=== PATIENT | male | born 1950 | race Caucasian/White ===

== ENCOUNTER 2017-07-18 13:46 | Inpatient (IN) ==
--- NOTE | 2017-07-18 14:16 | CT Report ---
CT brain Indication: Right-sided weakness Comparison: None available Technique: Axial CT imaging of the brain is performed without contrast with 3 mm increments. Findings: No evidence of hemorrhage, mass mass effect midline shift or acute infarct seen. The brain parenchyma attenuation and differentiation appears within normal limits. The ventricles and cisterns are normal in caliber. No cranial or skull base abnormality is identified. Impression: No evidence of abnormality demonstrated. This CT exam was performed using one or more the following dose reduction techniques: Automated exposure control, adjustment of the MA and/or KV according to patient size, or use of iterative reconstruction technique. PROCEDURE INTERPRETED AT [facility] DEPARTMENT OF RADIOLOGY Final Report Signed by: Dr. Ritchie Pena
[2017-07-18] MEDS ORDERED: SODIUM CHLORIDE 0.9% 500 ML IV STA (14:51)
[2017-07-18 15:05] LABS: Basophils # 0.1 10*3/uL (0.0-0.2); Basophils % 0.6 % (0.0-0.8); Eosinophils # 0.1 10*3/uL (0.0-0.87); Eosinophils % 0.6 % (0.00-10.9); Hematocrit 43.9 VOL% (42.0-52.0); Hemoglobin 15.2 GM/DL (14.0-18.0); Lymphocytes # 2.3 10*3/uL (1.4-4.0); Lymphocytes % 23.5 % (21.2-54.2); Mean Corpuscular HGB Conc 34.6 GM/DL (32-36); Mean Corpuscular Hemoglobin 29 PG (27-34); Mean Corpuscular Volume 84.7 FL (87-102); Mean Platelet Volume 8.9 FL (9.6-12.0); Monocytes # 0.9 10*3/uL (0.11-0.8); Monocytes % 8.8 % (1.7-12.7); Neutrophils # 6.5 10*3/uL (1.4-7.4); Neutrophils % 65.5 % (38.7-73.9); Platelet Count 272 T/CUMM (130-400); Red Blood Count 5.18 MC/CUMM (3.8-5.5); Red Cell Distribution Width 13.3 % (9.3-17.3); White Blood Count 9.9 T/CUMM (4-12)
[2017-07-18 15:11] LABS: PT Patient Result 10.6 SECS; Partial Thromboplastin Time 27.8 SECS (0-40)
[2017-07-18 15:26] LABS: Alanine Aminotransferase 26 U/L (16-61); Albumin 3.9 G/DL (3.4-5.0); Alkaline Phosphatase 121 U/L (45-117); Aspartate Amino Transferase 20 U/L (0-37); Blood Urea Nitrogen 10 MG/DL (7-18); Calcium 8.9 MG/DL (8.5-10.1); Glucose 102 MG/DL (74-106); Osmolality,Calculated 279.3 MOS/KG (273-304); Potassium 3.9 MMOL/L (3.5-5.1); Sodium 141 MMOL/L (136-145); Total Protein 6.9 G/DL (6.4-8.3); Troponin I Only < 0.015 NG/ML (0.00-0.045)
--- NOTE | 2017-07-18 15:27 | XRay Report ---
Single view the chest. Indication: Cardiomegaly comparison: February 21, 2015. The heart is enlarged. The pulmonary vasculature is normal. No pneumothorax. No pleural effusion. Both lung bases demonstrate reticulonodular abnormality, worse on the right. This is a nonspecific finding. Osseous structures demonstrate degenerative change present within the spinal column and shoulders. Impression: Enlarged heart. Worsening reticulonodular pattern within the lung bases, CT recommended for further evaluation. PROCEDURE INTERPRETED AT [facility] DEPARTMENT OF RADIOLOGY Final Report Signed by: Dr. Abena Cooney
--- NOTE | 2017-07-18 16:32 | Emergency Department Note ---
Lauri Perez Manpreet, am scribing for, and in the presence of, Tai Mcintosh MD 15:28. Dayna Perez Charles R, MD, personally performed the services described in this documentation, ascribed by Tyrone Carreon in my presence, and it is both accurate and complete 631 . Arrival - Arrival Chief Complaint: Neuro Stated Complaint: poss stroke/sent by Dr Duggan ED Nursing Triage Note: weakness to right arm and leg this am that lasted approx 5 min - pt states that he is now only having a HINES - sent from Dr Duggan office for evaulation Mode of Arrival: Ambulatory Limitations: No Limitations Source: Patient - History of Present Illness HPI Narrative: Pt is a 67 y/o male who presents to the ED with CC of right arm and leg weakness at 0500 AM lasting 5 minutes. Pt states he was in the shower and suddenly felt weakness in his right arm and leg and was not able to turn the water on. Pain is now gone but pt currently c/o HINES and blurred vision that started 3 hours ago. Pt states he feels like his heart is also beating fast. Pt denies any fever, chills, CP, N/V/D, numbness, or tingling. No other pains/ complaints reported to the ED. Onset (ago): hour(s) (at 0500 and 3 hours ago) Consistency: constant, now resolved Severity: moderate Severity scale (1-10): 3 Allergies/Adverse Reactions: Allergies Allergy/AdvReac Type Severity Reaction Status Date / Time Penicillins Allergy Intermediate RASH Verified 02/21/15 14:29 Home Medications: Home Medications Medication Instructions Recorded Confirmed Type [place]-3 Fatty Acids/Fish Oil 1 each PO DAILY 02/21/15 07/18/17 History [[place] 3 1,000 mg Softgel] Azelastine Nasal 137 Mcg/[place] 1 spray BOTH NARES BID #14 spray 02/23/15 Rx [Astelin] Fluticasone 50 Mcg Nasal [place] 1 spray BOTH NARES BID #20 spray 02/23/15 Rx [Flonase] Allopurinol [Zyloprim] 100 mg PO QAM 07/18/17 07/18/17 History Atenolol [Tenormin] 25 mg PO BID 07/18/17 07/18/17 History Fexofenadine/Pseudoephedrine 1 each PO QAM 07/18/17 07/18/17 History [Fexofenadine-Pse ER 60-120 Tab] Tamsulosin [Flomax] 0.4 mg PO QPM 07/18/17 07/18/17 History Zolpidem Tartrate [Zolpidem 5 mg PO BEDTIME 07/18/17 07/18/17 History Tartrate] Review of System - Review of System 12 point system: reviewed and no additional remarkable complaints except as stated - Review of System Constitutional: Absent: chills, diaphoresis, fever Eyes: Present: vision change (Blurred vision) Respiratory: Absent: cough, respiratory distress Cardiovascular: Present: palpitations. Absent: chest pain Gastrointestinal: Absent: abdominal pain, nausea, vomiting Musculoskeletal: Absent: back pain Neurological: Present: headache. Absent: weakness, numbness, paresthesias Medical,Surgical,& Family Hx - Medical History Cardio: History of: Hypertension Endocrine: History of: Dyslipidemia Rheumatology: History of;: Gout, Rheumatoid Arthritis Genitourinary: History of: Kidney Stones, Problems Gastrointestinal: History of: Diverticulitis/ Diverticulosis - Family History Family History: Reports;: Family Cancer (brother), Family Heart Disease (dad), Family Hypertension (dad), Family Stroke (mother) Denies;: Family Diabetes - Social History Smoking Status: Never smoker Frequency of Alcohol Use: None Type of Drug Use: None Exam Vital Signs: Vital Signs Temperature 97.1 F L 07/18/17 13:55 Pulse Rate 67 07/18/17 15:01 Respiratory Rate 18 07/18/17 15:01 Blood Pressure 173/91 07/18/17 15:01 O2 Sat by Pulse Oximetry 100 07/18/17 15:01 - General General appearance: alert, in no apparent distress - Head Head exam: Present: atraumatic, normocephalic, normal inspection - Eye Eye exam: Present: normal appearance, PERRL, EOMI - ENT ENT exam: Present: normal exam, normal oropharynx, mucous membranes moist, TM's normal bilaterally - Neck Neck exam: Present: normal inspection, full ROM, trachea midline. Absent: tenderness - Chest Chest inspection: Present: normal inspection, symmetric chest wall rise. Absent : tenderness - Respiratory Respiratory exam: Present: normal lung sounds bilaterally. Absent: accessory muscle use, respiratory distress - Cardiovascular Cardiovascular exam: Present: regular rate, normal rhythm, normal heart sounds. Absent: murmur, rubs, gallop - Abdominal Exam Abdominal exam: Present: soft, normal bowel sounds. Absent: distention, tenderness, guarding - Extremities Exam Extremities exam: Present: normal inspection, full ROM. Absent: tenderness - Back Exam Back exam: Present: normal inspection, full ROM. Absent: tenderness - Neurological Exam Neurological exam: Present: alert, oriented X3, CN II-XII intact, reflexes normal - Psychiatric Psychiatric exam: Present: normal affect, normal mood - Skin Skin exam: Present: warm, dry, intact, normal color. Absent: pallor Course - Consultations Consultation #1: Hospitalist will admit patient Time: 16:20 Results - Labs CBC & BMP: 07/18/17 14:53 07/18/17 14:53 Lab Results: I have reviewed the patients labs Labs: Laboratory Tests 07/18/17 07/18/17 07/18/17 14:53 14:53 14:53 WBC 9.9 RBC 5.18 Hgb 15.2 Hct 43.9 MCV 84.7 L MPV 8.9 L [place] # (Auto) 0.9 H INR 1.0 PT Patient/Control Mix 10.6 Circ Anticoag PTT 27.8 Sodium 141 Potassium 3.9 Chloride 106 BUN 10 Creatinine 1.00 Alkaline Phosphatase 121 H Serum Alcohol < 15 L - Diagnostic Findings Procedure: CT: report reviewed by me ("CT Head w/o con: No evidence of abnormality demonstrated.") Disposition Clinical Impression: Cerebrovascular accident, Transient cerebral ischemia, Diplopia Case discussed with: patient, patient's family Disposition: Still a Patient Condition: Stable Time of Disposition: 16:31 NIH Stroke Score - Stroke Score Initial Assessment Level of Consciousness: Alert Level of Consciousness Questions: Answers Both Correctly Level of Consciousness Commands: Obeys Both Correctly Best Gaze: Normal Visual Chung: Bilateral Hemianopia (Double vision) Facial Palsy: Normal Motor - Right Arm: No Drift Motor - Left Arm: No Drift Motor - Right Leg: No Drift Motor - Left Leg: No Drift Limb Ataxia: Absent Sensory (Pin Prick): Normal Best Language: Normal Dysarthria: Normal Extinction / Inattention (Neglect): No Neglect NIH Stroke Score: 3
[2017-07-18 16:58] LABS: Apearance,Urine CLEAR (Clear); Bilirubin,Urine Negative (Negative); Blood, Urine Negative (Negative); Glucose,Urine (UA) Negative (Negative); Ketones,Urine Negative (Negative); Mucus,Urine Occasional /LPF (Occasional); Nitrite,Urine Negative (Negative); Protein,Urine Negative; RBC,Urine 1 /HPF (0-4); Squamous Epithelial Cell,Urine Occasional /HPF (0-10); Urine Color Yellow (Yellow); Urine Specific Gravity 1.018 (1.001-1.035); Urine Urobilinogen < 2.0 EU/DL (0.2-1.0); WBC,Urine 1 /HPF (0-6)
[2017-07-18 17:00] LABS: Barbiturates Screen,Urine Negative (Negative); Benzodiazepines Screen,Urine Negative (Negative); Cannabinoid Screen,Urine Negative (Negative); Opiate Screen,Urine Positive (Negative); Phencyclidine Screen,Urine Negative (Negative)
[2017-07-18] MEDS ORDERED: guaiFENesin/DM ER 600-30 MG TABLET PO PRN (17:12)
[2017-07-18] MEDS ORDERED: DOCUSATE SODIUM 100 MG CAPSULE PO PRN (17:12)
[2017-07-18] MEDS ORDERED: PROMETHAZINE 25 MG/1 ML VIAL IM PRN (17:12)
[2017-07-18] MEDS ORDERED: ONDANSETRON 4 MG/2 ML VIAL IV PRN (17:12)
[2017-07-18] MEDS ORDERED: MORPHINE 2 MG/1 ML SYRINGE IV PRN (17:12)
[2017-07-18] MEDS ORDERED: ACETAMINOPHEN 325 MG TABLET PO PRN ×2 (17:12)
[2017-07-18] MEDS ORDERED: diphenhydrAMINE CAP 25 MG CAPSULE PO PRN (17:12)
[2017-07-18] MEDS ORDERED: LABETALOL 20 MG/4 ML SYRINGE IV PRN (17:16)
[2017-07-18] MEDS ORDERED: hydrALAZINE 20 MG/1 ML VIAL IV PRN (17:20)
[2017-07-18] MEDS ORDERED: ENOXAPARIN 40 MG/0.4 ML SYRINGE SUBCUT SCH (17:30)
--- NOTE | 2017-07-18 17:38 | Hospitalist History & Physical ---
Assessment and Plan - Time spent with patient Time spent with patient: Greater than 30 minutes (1) TIA (transient ischemic attack) Status: Acute Assessment and plan: 67-year-old white male with history of hypertension, BPH, and gout admitted by hospitalist service with right upper and lower extremity weakness, headache, and blurry vision. The weakness and headache have resolved but the diplopia has continued. Patient is being admitted for stroke workup. Will get echocardiogram, carotid ultrasounds, lipid panel and MRI in the morning. He has been started on aspirin 325 mg. Patient's home medicines of been restarted except for his fexofenadine/pseudoephedrine. This will be held for now. Patient's chest x-ray showing worsening reticulonodular pattern and it is recommending a CT for further evaluation. This can be worked up as an outpatient. He is a patient of Dr. House. Dr. Campoverde will see and examine patient and further recommendations to follow. Current Visit: Yes (2) Benign prostatic hypertrophy Status: Chronic Current Visit: No (3) Hypertension Status: Chronic Current Visit: No (4) Diplopia Status: Acute Current Visit: Yes History of Present Illness Chief complaint: Right-sided weakness and blurry vision History of present illness: Mr. Sandoval is a 67 year old white male with history of hypertension and gout presenting to the ED with a several hour history of right lower extremity weakness and blurry vision with headache. Patient states about 5:00 this morning when he was in the shower he all of a sudden became weak in his right arm and his right leg. Patient states he did not fall but he sat down in the shower and within 5-10 minutes and completely resolved. Patient states approximately 3 hours later he developed a severe headache with blurry vision. They gave him some [place] in the ED that has dulled the headache but the blurry vision is still there. Neurologically patient is intact and he has normal motor and sensory function equal bilaterally. His vital signs are stable now and his blood pressure has improved since admission. His CBC, coags, CMP, UA and drug screen are negative. CT of the head is negative. Chest x-ray shows enlarged heart with worsening reticulonodular pattern within the lung bases. After discussion with Dr. Mcintosh the ED physician and Dr. Campoverde the admitting hospitalist, it was agreed patient would be admitted for further evaluation and treatment. Patient's medicines have been reconciled and he is a full code. Home Medications Medication Instructions Recorded Confirmed Type [place]-3 Fatty Acids/Fish Oil 1 each PO DAILY 02/21/15 07/18/17 History [[place] 3 1,000 mg Softgel] Azelastine Nasal 137 Mcg/[place] 1 spray BOTH NARES BID #14 spray 02/23/15 Rx [Astelin] Fluticasone 50 Mcg Nasal [place] 1 spray BOTH NARES BID #20 spray 02/23/15 Rx [Flonase] Allopurinol [Zyloprim] 100 mg PO QAM 07/18/17 07/18/17 History Atenolol [Tenormin] 25 mg PO BID 07/18/17 07/18/17 History Fexofenadine/Pseudoephedrine 1 each PO QAM 07/18/17 07/18/17 History [Fexofenadine-Pse ER 60-120 Tab] Tamsulosin [Flomax] 0.4 mg PO QPM 07/18/17 07/18/17 History Zolpidem Tartrate [Zolpidem 5 mg PO BEDTIME 07/18/17 07/18/17 History Tartrate] Allergies Allergy/AdvReac Type Severity Reaction Status Date / Time Penicillins Allergy Intermediate RASH Verified 02/21/15 14:29 Medical,Surgical,& Family Hx - Medical History Cardio: History of: Hypertension Endocrine: History of: Dyslipidemia Rheumatology: History of;: Gout, Rheumatoid Arthritis Genitourinary: History of: Kidney Stones, Problems Gastrointestinal: History of: Diverticulitis/ Diverticulosis - Surgical History Abdominal Surgeries: Surgical HX of: Appendectomy Orthopedic Surgeries: Surgical HX of;: Orthopedic Surgery - Family History Family History: Reports;: Family Cancer (brother), Family Heart Disease (dad), Family Hypertension (dad), Family Stroke (mother) Denies;: Family Diabetes - Social History Smoking Status: Former smoker Frequency of Alcohol Use: None Type of Drug Use: None Marital Status: Lives With:: Spouse Functional capacity: independent ambulation 12 point system: reviewed and no additional remarkable complaints except as stated Exam - Constitutional Vitals: Period Temp Pulse Resp BP Sys/Graham Pulse Ox Last 24 Hr 97.1 F 61-103 16-20 135-177/90-100 98-100 Exam: Constitutional System: No distress. No tremulousness. Head: Normocephalic, atraumatic. Ears, Nose and Throat System: No evidence of Otitis or Mastoiditis. No epistaxis or discharge Eyes System: Pupils equal, round, and reactive. Extraocular muscles intact. Neck: Supple, without adenopathy, No jugular venous distention. No thyromegaly, neck mass, or prior surgery apparent. Respiratory System: Chest clear to auscultation. Cardiovascular System: Heart with regular rate and rhythm. No murmur. GI System: Abdomen soft, nontender. Normo active bowel sounds present. Musculoskeletal System: limbs with no pedal edema. Full distal pulses. Strength 5/5 upper and lower extremities, balance normal, sensation equal bilaterally Neurological System: No discernable sensory deficit. No aphasia Psychiatric System: Conversation is rational Results - Labs CBC & BMP: 07/18/17 14:53 07/18/17 14:53 Lab Results: I have reviewed the past 24 hour labs - Impressions EKG is pending - Diagnostic Findings Procedure: Chest x-ray: report reviewed by me (Enlarged heart. Worsening reticulonodular pattern within the lung bases CT recommended for further evaluation.), CT: report reviewed by me (CT the head with no evidence of abnormality.) Quality Measures - Stroke Onset of Symptoms Date: 07/18/17 Onset of Symptoms Time: 05:00
[2017-07-18 17:42] LABS: Risk Ratio 4.67; VLDL CHOLESTEROL 42.6 MG/DL
--- NOTE | 2017-07-18 18:01 | Ultrasound Report ---
Bilateral carotid Doppler. Grayscale, color-flow, and spectral analysis performed and interpreted. Indication: TIA. There is moderate predominantly calcified plaque seen in both carotid bulbs and internal carotid origins. The vessels are also tortuous. The right internal carotid artery peak systolic velocity is 100 cm/s with an IC/CC ratio of 1.6. The left internal carotid artery peak systolic velocity is 95 cm/s with an IC/CC ratio of 1.0. There is antegrade low within each vertebral artery. Impression: Using NASCET criteria, findings consistent with less than 50% stenosis bilaterally. The Ultrasound images were captured and stored. PROCEDURE INTERPRETED AT [facility] DEPARTMENT OF RADIOLOGY Final Report Signed by: Dr. Abena Cooney
[2017-07-18] MEDS ORDERED: TAMSULOSIN 0.4 MG CAPSULE PO SCH (19:00)
[2017-07-18] MEDS: SODIUM CHLORIDE 0.9% 1,000 ML IV SCH (19:45)
[2017-07-18] MEDS: ATENOLOL 50 MG TABLET PO SCH (20:46)
[2017-07-18] MEDS: FLUTICASONE 50 MCG NASAL SPRAY 16 GM BOTTLE BOTH NARES SCH (20:47)
[2017-07-18] MEDS: AZELASTINE NASAL 137 MCG/SPRAY 30 ML BOTTLE BOTH NARES SCH (20:49)
[2017-07-18] MEDS ORDERED: ZALEPLON 5 MG CAPSULE PO SCH (21:00)
[2017-07-19 03:13] LABS: Basophils # 0.1 10*3/uL (0.0-0.2); Basophils % 0.7 % (0.0-0.8); Eosinophils # 0.2 10*3/uL (0.0-0.87); Eosinophils % 1.7 % (0.00-10.9); Hematocrit 41.2 VOL% (42.0-52.0); Hemoglobin 13.8 GM/DL (14.0-18.0); Immature Granulocytes % 1.1 %; Lymphocytes # 3.1 10*3/uL (1.4-4.0); Lymphocytes % 35.3 % (21.2-54.2); Mean Corpuscular HGB Conc 33.5 GM/DL (32-36); Mean Corpuscular Hemoglobin 29 PG (27-34); Mean Corpuscular Volume 86.4 FL (87-102); Mean Platelet Volume 9.2 FL (9.6-12.0); Monocytes # 0.8 10*3/uL (0.11-0.8); Monocytes % 8.7 % (1.7-12.7); Neutrophils # 4.7 10*3/uL (1.4-7.4); Neutrophils % 52.5 % (38.7-73.9); Platelet Count 254 T/CUMM (130-400); Red Blood Count 4.77 MC/CUMM (3.8-5.5); Red Cell Distribution Width 13.5 % (9.3-17.3); White Blood Count 8.9 T/CUMM (4-12)
[2017-07-19 04:16] LABS: Calcium 8.5 MG/DL (8.5-10.1); Magnesium 2.2 MG/DL (1.8-2.4); Osmolality,Calculated 277.4 MOS/KG (273-304); Potassium 4.3 MMOL/L (3.5-5.1)
[2017-07-19] MEDS ORDERED: OMEGA 3 ACID ETHYL ESTERS 1 GM CAPSULE PO SCH (09:00)
[2017-07-19] MEDS ORDERED: PANTOPRAZOLE 40 MG TABLET PO SCH (09:00)
[2017-07-19] MEDS ORDERED: ALLOPURINOL 100 MG TABLET PO SCH (09:00)
[2017-07-19] MEDS ORDERED: ASPIRIN 325 MG TABLET PO SCH (09:00)
[2017-07-19] MEDS: FLUTICASONE 50 MCG NASAL SPRAY 16 GM BOTTLE BOTH NARES SCH (09:19)
[2017-07-19] MEDS: SODIUM CHLORIDE 0.9% 1,000 ML IV SCH (09:31)
[2017-07-19] MEDS: ATENOLOL 50 MG TABLET PO SCH (10:43)
[2017-07-19] MEDS ORDERED: ATORVASTATIN 20 MG TABLET PO SCH (12:00)
[2017-07-19] MEDS: AZELASTINE NASAL 137 MCG/SPRAY 30 ML BOTTLE BOTH NARES SCH (14:19)
--- NOTE | 2017-07-19 14:45 | ECHO Report ---
Bernabe Sandoval Exam Date: 07/19/2017 10:04 Referring Physician: Technologist: re Isaac ARDMS, RVT Age: 67 Ht (in): 70 Wt (lb): 195 Gender: M Exam Location: [facility] Echo Indications: Essential (primary) hypertension, TIA, Diplopia, BPH BP: 120 / 57 HR: 56 Rhythm: Sinus Technical Quality: good IMPRESSIONS Left ventricular ejection fraction is estimated at 65 % without RWMA Grade 2 diastolic dysfunction. Tricuspid regurgitation velocities suggest a RVSP of 54 mmHg. MEASUREMENTS (Male / Female) Normal Values 2D ECHO LV Diastolic Diameter PLAX 5.3 cm 4.2 - 5.9 / 3.9 - 5.3 cm LV Systolic Diameter PLAX 3.2 cm LV Fractional Shortening PLAX 40.6 % IVS Diastolic Thickness 0.8 cm 0.6 - 1.0 / 0.6 - 0.9 cm LVPW Diastolic Thickness 0.9 cm 0.6 - 1.0 / 0.6 - 0.9 cm RV Internal Dim ED PLAX 2.9 cm Aortic Root Diameter 3.4 cm LA Systolic Diameter LX 4.9 cm 3.0 - 4.0 / 2.7 - 3.8 cm DOPPLER TR Peak Velocity 330.0 cm/s TR Peak Gradient 43.6 mmHg FINDINGS Left Ventricle Normal left ventricular cavity size. Normal left ventricular wall thickness. Left ventricular ejection fraction is estimated at 65 %. Grade 2 diastolic dysfunction. Right Ventricle The right ventricle is normal in size and function. Right Atrium The right atrium is mildly enlarged. Left Atrium The left atrium is mildly enlarged. Mitral Valve Mitral valve sclerosis. No mitral valve stenosis. Mild-moderate mitral valve regurgitation. Aortic Valve Trileaflet aortic valve. Aortic valve sclerosis. No aortic valve stenosis. Mild aortic valve regurgitation. Tricuspid Valve Morphologically normal tricuspid valve. Moderate tricuspid valve regurgitation. Tricuspid regurgitation velocities suggest a RVSP of 54 mmHg. Pulmonic Valve Morphologically normal pulmonic valve. Mild pulmonary valve regurgitation. Pericardium Normal pericardium without effusion. Aorta Normal ascending aorta dimension. Adelaida Casas (Electronically Signed) Final Date: 19 July 2017 14:44
--- NOTE | 2017-07-19 15:11 | CT Report ---
Indication: Blurred vision, transient ischemic attack, headache Comparison: Noncontrast CT head and Carotid ultrasound dated 07/18/2017 Technique: Serial axial tomographic images of the brain and neck are obtained without the use of intravenous contrast. Then, following the IV administration of intravenous contrast, axial tomographic images of the brain and neck are obtained utilizing an angiogram protocol. Multiplanar reformatted images are obtained and reviewed. 3-D/MIP images of the neck and intracranial vasculature were created at a separate workstation and submitted for review. The total DLP is 1348 mGy*cm. Dose reduction: This CT exam was performed using one or more of the following dose reduction techniques: Automated exposure control, automated adjustment of the mA and/or KV according to patient size, or use of iterative reconstruction technique. Findings: CTA HEAD: The midline structures are nondisplaced. There is no evidence of hydrocephalus. There is no evidence of acute intracranial hemorrhage. The juarez-white matter differentiation is maintained. The visualized paranasal sinuses, mastoid air cells and middle ear cavities are clear. The included orbits are intact. The visualized osseous structures and overlying soft tissues of the skull and face demonstrate no acute abnormality. 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 The anterior circulation demonstrates no aneurysm, AVM or occlusion. Hypoplastic right vertebral artery and especially the V4 segment with minimal communication to the basilar artery is noted. The basilar artery and posterior circulation are therefore primarily supplied via the left vertebral artery. The posterior circulation otherwise demonstrates no aneurysm, AVM or occlusion. CTA NECK: Thoracic aortic arch is significant for a two-vessel arch with common origin of the brachiocephalic trunk and left common carotid artery. The bilateral subclavian arteries appear patent. Bilateral vertebral arteries are patent. However of note, the right vertebral artery significantly diminutive in size compared to the left. The right common carotid artery is essentially widely patent with minimal noncalcified plaque noted distally. At the carotid bifurcation, there is mixed atherosclerotic plaque with no significant luminal stenosis. The right internal carotid artery measures 5.5 mm diameter. External carotid artery and branches appear widely patent. Left common carotid artery is essentially widely patent. At the carotid bifurcation, there is mixed but primarily calcified atherosclerotic plaque which mildly (30%) narrows the proximal left internal carotid artery. The left internal carotid artery measures 4 mm diameter. External carotid artery and branches are patent. The osseous structures of the cervical spine demonstrate no acute abnormality. Multilevel mild degenerative changes noted throughout the cervical spine with endplate sclerotic changes disc space loss and posterior discussed by complexes, these are most prominent at C3-4, C5-6 and C6-C7. There is no suggestion of high-grade osseous spinal stenosis. The visualized soft tissues of the neck demonstrate no acute abnormality. There is no abnormal enhancement within the neck soft tissues or adenopathy. Minimal scattered paraseptal emphysematous changes are noted. There are also scattered areas of primarily peripheral based inter lobular septal thickening and a few scattered ground glass nodules and calcific areas suggestive of chronic granulomatous process. The visualized lung apices demonstrate no acute abnormality. IMPRESSION: CTA brain demonstrates no evidence of significant arterial abnormality. There is no evidence of AVM, aneurysm or flow-limiting stenosis. 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 CTA neck demonstrates no significant atherosclerotic disease or stenosis within either internal carotid artery. Other incidental findings as above.. PROCEDURE INTERPRETED AT [facility] DEPARTMENT OF RADIOLOGY Final Report Signed by: Raman Monaco
--- NOTE | 2017-07-19 15:51 | Discharge Summary ---
<Heather Thakur Sony - Last Filed: 07/19/17 15:48> Hospital Course - Hospital Course Hospital Course: 67-year-old white male with history of hypertension, BPH, and gout admitted by the hospitalist service on 07/18/2017 with right upper and lower extremity weakness, headache, and blurry vision. Patient was admitted for stroke workup and started on aspirin 325 mg p.o. daily. Patient's CT of the head and carotid Dopplers along with echocardiogram were all normal. Patient attempted to do open MRI this morning but he could not tolerate it. CTA of the head and neck were ordered and those were normal as well. Patient's right-sided weakness and headache have now resolved. Patient states he still has a little bit of blurry vision but it is much improved from admission. Patient was found to have elevated cholesterol but he thinks he is allergic to 1 of the cholesterol medications and he is not sure which one. Patient also had a chest x-ray that showed an enlarged heart and worsening reticulonodular pattern within the lung bases. Radiologist is recommending a CT for further evaluation. Patient's primary physician is Dr. Whalen. Will have patient follow-up with him for initiation of cholesterol medication and decision on whether CT of the chest is needed. Due to the blurry vision and negative workup patient will follow up with his database administration manager Dr. Gallego next week. Complete discharge instructions were given to the patient and his in the room. Care coordination, chart review, and completed discharge paperwork took approximately 38 minutes. - Time spent with patient Time with patient DS: Greater than 30 minutes Diagnosis - Discharge Diagnosis (1) TIA (transient ischemic attack) Status: Resolved (2) Benign prostatic hypertrophy Status: Chronic (3) Hypertension Status: Chronic (4) Diplopia Status: Acute Specialty Discharge - Follow Up or Referrals Follow up with: your, opthalmologist [Other] (call saturday for appt) Tito Duggan MD [Primary Care Provider] - 1 Week (will need started on cholesterol medication and fu cxr done in hospital) Discharge Plan - Discharge Data Disposition: Disch To Home/Self Care Condition at Discharge: Stable Discharge Diet: heart healthy Activity: resume usual activities as tolerated - Discharge Medications New Aspirin Tab 325 mg PO DAILY tablet Continue Loretto-3 Fatty Acids/Fish Oil [Loretto 3 1,000 mg Softgel] 1 each PO DAILY Azelastine Nasal 137 Mcg/Cherry Log [Astelin] 1 spray BOTH NARES BID #14 spray Fluticasone 50 Mcg Nasal Cherry Log [Flonase] 1 spray BOTH NARES BID #20 spray Atenolol [Tenormin] 25 mg PO BID Allopurinol [Zyloprim] 100 mg PO QAM Zolpidem Tartrate 5 mg PO BEDTIME Fexofenadine/Pseudoephedrine [Fexofenadine-Pse ER 60-120 Tab] 1 each PO QAM Tamsulosin [Flomax] 0.4 mg PO QPM - Follow Up or Referral Follow Up: Tito Duggan MD [Primary Care Provider] - 1 Week (will need started on cholesterol medication and fu cxr done in hospital) your, opthalmologist [Other] (call saturday for appt) - Forms/Instructions Instructions: Transient Ischemic Attack (DC) Exam - Constitutional Vitals: Period Temp Pulse Resp BP Sys/Graham Pulse Ox Last 24 Hr 97.1 F-98.3 F 50-59 16-20 120-158/57-95 94-100 Exam: 67-year-old white male, no acute distress, alert and oriented Chest clear CV regular rate and rhythm Abdomen soft and nontender Extremities no edema Discharge Results Labs on day of discharge: Labs from last 24 hours 07/19/17 07/19/17 07/19/17 02:45 02:45 02:45 WBC 8.9 RBC 4.77 Hgb 13.8 L Hct 41.2 L MCV 86.4 L MCH 29 MCHC 33.5 RDW 13.5 Plt Count 254 MPV 9.2 L Neut % (Auto) 52.5 Lymph % (Auto) 35.3 Isabella % (Auto) 8.7 Eos % (Auto) 1.7 Baso % (Auto) 0.7 Neut # (Auto) 4.7 Lymph # (Auto) 3.1 Isabella # (Auto) 0.8 Eos # (Auto) 0.2 Baso # (Auto) 0.1 Immature Gran % 1.1 Nucleated RBC % 0.0 Immature Gran # 0.10 Nucleated RBCs # 0.00 Immature Plt Fraction 0.0 Sodium 140 Potassium 4.3 Chloride 106 Carbon Dioxide 28 Anion Gap 10.3 BUN 11 Creatinine 0.90 GFR Calculation 106 BUN/Creatinine Ratio 12.00 Glucose 94 Hemoglobin A1c Calculated Osmolality 277.4 Calcium 8.5 Magnesium 2.2 Troponin I < 0.015 Triglycerides Cholesterol LDL Cholesterol VLDL Cholesterol HDL Cholesterol Heart Disease Risk Ratio 07/18/17 07/18/17 07/18/17 22:38 20:45 14:53 WBC RBC Hgb Hct MCV MCH MCHC RDW Plt Count MPV Neut % (Auto) Lymph % (Auto) Isabella % (Auto) Eos % (Auto) Baso % (Auto) Neut # (Auto) Lymph # (Auto) Isabella # (Auto) Eos # (Auto) Baso # (Auto) Immature Gran % Nucleated RBC % Immature Gran # Nucleated RBCs # Immature Plt Fraction Sodium Potassium Chloride Carbon Dioxide Anion Gap BUN Creatinine GFR Calculation BUN/Creatinine Ratio Glucose Hemoglobin A1c 6.3 Calculated Osmolality Calcium Magnesium Troponin I < 0.015 < 0.015 Triglycerides Cholesterol LDL Cholesterol VLDL Cholesterol HDL Cholesterol Heart Disease Risk Ratio 07/18/17 14:53 WBC RBC Hgb Hct MCV MCH MCHC RDW Plt Count MPV Neut % (Auto) Lymph % (Auto) Isabella % (Auto) Eos % (Auto) Baso % (Auto) Neut # (Auto) Lymph # (Auto) Isabella # (Auto) Eos # (Auto) Baso # (Auto) Immature Gran % Nucleated RBC % Immature Gran # Nucleated RBCs # Immature Plt Fraction Sodium Potassium Chloride Carbon Dioxide Anion Gap BUN Creatinine GFR Calculation BUN/Creatinine Ratio Glucose Hemoglobin A1c Calculated Osmolality Calcium Magnesium Troponin I Triglycerides 213 H Cholesterol 229 H LDL Cholesterol 137.0 VLDL Cholesterol 42.6 HDL Cholesterol 49 Heart Disease Risk Ratio 4.67 DS: Provider Date of admission: 07/18/17 16:29 Primary care physician: Tito Duggan MD Attending physician on admission: Bianca Velázquez MD Consults: 07/19/17 09:55 Consult to Physician [CONS] Routine Comment: tia,headache,blurred vision. Consulting Provider: Sang Baez Consulting Provider Notified: Yes When should Consulting Provider be notified: Now Consult to Specialist Group: Neurology When should Consulting Provider be notified: Now Person Notified: MAURY Date Notified: 07/19/17 Time Notified: 10:16 Consult Notification Comment: DR BAEZ IS ON BYPASS Discharging clinician: JOSE Alvarado Expected date of discharge: 07/19/17 <Danielle Chino - Last Filed: 07/19/17 17:08> Hospital Course - Time spent with patient Time with patient DS: Greater than 30 minutes Diagnosis - Discharge Diagnosis (1) Benign prostatic hypertrophy Status: Chronic (2) TIA (transient ischemic attack) Status: Resolved Exam - Constitutional General appearance: no acute distress - Head Head exam: Present: normal inspection - Respiratory Respiratory exam: Present: clear to auscultation bilaterally - Cardiovascular Cardiovascular exam: Present: regular rate and rhythm - GI/Abdominal GI/Abdominal exam: Present: normal bowel sounds - Extremities Exam Extremities exam: Present: normal inspection
[2017-07-19 17:12] VITALS: BP 123/75
== END 2017-07-19 17:00 | disposition home or self-care (01) | DRG 69 ==
LOC: N.ED 13:46 → SUATTDRO 16:29 → N.EDINP 16:29 → N.4E 18:55
PROVIDERS: ADMIT Family Medicine; ATTEND Internal Medicine

== ENCOUNTER 2020-01-07 22:48 | Observation (INO) ==
[2020-01-08 00:06] LABS: Basophils # 0.1 10*3/uL (0.0-0.2); Basophils % 1.2 % (0.0-0.8); Eosinophils # 0.2 10*3/uL (0.0-0.87); Eosinophils % 2.1 % (0.00-10.9); Hematocrit 46.1 VOL% (42.0-52.0); Hemoglobin 14.8 GM/DL (14.0-18.0); Immature Granulocytes % 1.4 %; Immature Granulocytes Absolute 0.12 #; Lymphocytes # 2.5 10*3/uL (1.4-4.0); Lymphocytes % 29.7 % (21.2-54.2); Mean Corpuscular HGB Conc 32.1 GM/DL (32-36); Mean Platelet Volume 9.1 FL (9.6-12.0); Monocytes % 10.7 % (1.7-12.7); Neutrophils % 54.9 % (38.7-73.9); Platelet Count 236 T/CUMM (130-400); Red Blood Count 5.18 MC/CUMM (3.8-5.5); Red Cell Distribution Width 13.5 % (9.3-17.3); White Blood Count 8.3 T/CUMM (4-12)
[2020-01-08 00:17] LABS: PT Patient Result 10.7 SECS (9.6-12.2); Partial Thromboplastin Time 26.4 SECS (20.8-36.0)
[2020-01-08 00:33] LABS: Alanine Aminotransferase 32 U/L (16-61); Albumin 3.6 G/DL (3.4-5.0); Alkaline Phosphatase 113 U/L (45-117); Aspartate Amino Transferase 22 U/L (0-37); Bilirubin,Total < 0.39 MG/DL (0.2-1.0); Blood Urea Nitrogen 16 MG/DL (7-18); Calcium 8.9 MG/DL (8.5-10.1); Estimated Glom Filtration Rate 74 ML/MIN; Glucose 124 MG/DL (74-106); Total Protein 7.1 G/DL (6.4-8.3)
[2020-01-08 01:48] LABS: Apearance,Urine CLEAR (Clear); Bilirubin,Urine Negative (Negative); Blood, Urine Small mg/dL (Negative); Glucose,Urine (UA) Negative (Negative); Ketones,Urine Negative (Negative); Mucus,Urine Occasional /LPF (Occasional); Nitrite,Urine Negative (Negative); Protein,Urine Negative; RBC,Urine 1 /HPF (0-4); Squamous Epithelial Cell,Urine Occasional /HPF (0-10); Urine Color Yellow (Yellow); Urine Specific Gravity 1.021 (1.001-1.035); Urine Urobilinogen < 2.0 EU/DL (0.2-1.0); WBC,Urine 4 /HPF (0-6)
[2020-01-08] MEDS ORDERED: ZALEPLON 5 MG CAPSULE PO PRN (05:12)
[2020-01-08] MEDS ORDERED: ONDANSETRON 4 MG/2 ML VIAL IV PRN (05:12)
[2020-01-08] MEDS ORDERED: DOCUSATE SODIUM 100 MG CAPSULE PO PRN (05:12)
[2020-01-08] MEDS ORDERED: ACETAMINOPHEN 325 MG TABLET PO PRN (05:12)
[2020-01-08] MEDS ORDERED: ALPRAZolam 0.5 MG TABLET PO ONE (05:35)
[2020-01-08] MEDS ORDERED: LORazepam 2 MG/1 ML VIAL IV ONE (06:00)
[2020-01-08] MEDS: ENOXAPARIN 40 MG/0.4 ML SYRINGE SUBCUT SCH (06:04)
[2020-01-08 07:14] LABS: Basophils # 0.1 10*3/uL (0.0-0.2); Basophils % 1.1 % (0.0-0.8); Eosinophils # 0.2 10*3/uL (0.0-0.87); Eosinophils % 2.2 % (0.00-10.9); Hematocrit 46.1 VOL% (42.0-52.0); Hemoglobin 15.1 GM/DL (14.0-18.0); Immature Granulocytes % 1.6 %; Immature Granulocytes Absolute 0.11 #; Lymphocytes # 2.2 10*3/uL (1.4-4.0); Lymphocytes % 31.4 % (21.2-54.2); Mean Corpuscular HGB Conc 32.8 GM/DL (32-36); Mean Corpuscular Volume 87.3 FL (87-102); Mean Platelet Volume 9.3 FL (9.6-12.0); Monocytes % 11.5 % (1.7-12.7); Neutrophils % 52.2 % (38.7-73.9); Platelet Count 225 T/CUMM (130-400); Red Blood Count 5.28 MC/CUMM (3.8-5.5); Red Cell Distribution Width 13.6 % (9.3-17.3)
[2020-01-08 07:37] LABS: Risk Ratio 4.83; VLDL CHOLESTEROL 33.8 MG/DL
[2020-01-08 07:41] LABS: Calcium 8.9 MG/DL (8.5-10.1); Thyroid Stimulating Hormone 2.03 uIU/ml (0.358-3.74)
[2020-01-08] MEDS: AZELASTINE NASAL 137 MCG/SPRAY 30 ML BOTTLE BOTH NARES SCH ×2 (08:48→21:19)
[2020-01-08] MEDS: FLUTICASONE 50 MCG NASAL SPRAY 16 GM BOTTLE BOTH NARES SCH ×2 (08:48→21:19)
[2020-01-08] MEDS: ASPIRIN EC 81 MG TABLET PO SCH (08:49)
[2020-01-08] MEDS: OMEGA 3 ACID ETHYL ESTERS 1 GM CAPSULE PO SCH (08:49)
[2020-01-08] MEDS: atenoloL 25 MG TABLET PO SCH ×2 (08:49→21:19)
[2020-01-08] MEDS: allopurinoL 100 MG TABLET PO SCH (08:49)
[2020-01-08] MEDS: FEXOFENADINE PSEUDOEPHEDRINE PO SCH (11:34)
[2020-01-08] MEDS ORDERED: TAMSULOSIN 0.4 MG CAPSULE PO SCH (19:00)
[2020-01-09] MEDS: ENOXAPARIN 40 MG/0.4 ML SYRINGE SUBCUT SCH (07:19)
[2020-01-09 07:54] VITALS: BP 124/72
[2020-01-09] MEDS: OMEGA 3 ACID ETHYL ESTERS 1 GM CAPSULE PO SCH (08:27)
[2020-01-09] MEDS: atenoloL 25 MG TABLET PO SCH (08:27)
[2020-01-09] MEDS: allopurinoL 100 MG TABLET PO SCH (08:27)
[2020-01-09] MEDS: ASPIRIN EC 81 MG TABLET PO SCH (08:28)
[2020-01-09] MEDS: FLUTICASONE 50 MCG NASAL SPRAY 16 GM BOTTLE BOTH NARES SCH (08:28)
[2020-01-09] MEDS: FEXOFENADINE PSEUDOEPHEDRINE PO SCH (08:28)
[2020-01-09] MEDS: AZELASTINE NASAL 137 MCG/SPRAY 30 ML BOTTLE BOTH NARES SCH (08:28)
[2020-01-09] MEDS ORDERED: ATORVASTATIN 40 MG TABLET PO SCH (21:00)
== END 2020-01-09 11:28 | disposition home or self-care (01) ==
LOC: N.EDINP 22:48 → N.ED 22:48 → N.2E 01-08 04:40
PROVIDERS: ADMIT Internal Medicine; ATTEND Internal Medicine

== ENCOUNTER 2022-02-01 22:01 | Observation (INO) ==
[2022-02-02 00:49] LABS: Bacteria,Urine Many /HPF (Few); Mucus,Urine Occasional /LPF (Occasional); RBC,Urine 1222 /HPF (0-4); Squamous Epithelial Cell,Urine Occasional /HPF (0-10)
[2022-02-02 00:51] LABS: Glucose,Urine (UA) Negative (Negative); Ketones,Urine Negative (Negative); Nitrite,Urine Positive (Negative); Protein,Urine >=300 mg/dL (Negative); Urine Appearance CLOUDY (Clear); Urine Color Brown (Yellow); Urine Specific Gravity >= 1.030 (1.001-1.035)
[2022-02-02 00:52] LABS: Bilirubin,Urine Negative (Negative); Blood, Urine Large mg/dL (Negative); Urine Urobilinogen 0.2 eU/dL (<2.0)
[2022-02-02] MEDS ORDERED: cefTRIAXone 1,000 MG VIAL IM STA (01:10)
[2022-02-02] MEDS ORDERED: SODIUM CHLORIDE 0.9% 1,000 ML IV STA (01:18)
[2022-02-02] MEDS ORDERED: cefTRIAXone 1,000 MG in SODIUM CHLORIDE 0.9% 100 ML IV STA (01:39)
[2022-02-02 02:08] LABS: Basophils # 0.1 10*3/uL (0.0-0.2); Basophils % 0.5 % (0.0-0.8); Eosinophils # 0.1 10*3/uL (0.0-0.87); Eosinophils % 0.7 % (0.00-10.9); Hematocrit 46.7 VOL% (42.0-52.0); Hemoglobin 15.3 GM/DL (14.0-18.0); Immature Granulocytes % 0.6 %; Immature Granulocytes Absolute 0.09 #; Lymphocytes # 1.7 10*3/uL (1.4-4.0); Lymphocytes % 11.6 % (21.2-54.2); Mean Corpuscular HGB Conc 32.8 GM/DL (32-36); Mean Corpuscular Volume 89.5 FL (87-102); Mean Platelet Volume 8.7 FL (9.6-12.0); Monocytes % 7.9 % (1.7-12.7); Neutrophils % 78.7 % (38.7-73.9); Platelet Count 235 T/CUMM (130-400); Red Blood Count 5.22 MC/CUMM (3.8-5.5); Red Cell Distribution Width 13.7 % (9.3-17.3); White Blood Count 14.3 T/CUMM (4-12)
[2022-02-02 03:00] LABS: Alanine Aminotransferase 29 U/L (16-61); Albumin 3.7 G/DL (3.4-5.0); Alkaline Phosphatase 104 U/L (45-117); Aspartate Amino Transferase 19 U/L (0-37); Bilirubin,Total < 0.39 MG/DL (0.20-1.00); Blood Urea Nitrogen 15 MG/DL (7-18); Calcium 8.9 MG/DL (8.5-10.1); Carbon Dioxide 27 MMOL/L (21-32); Estimated Glom Filtration Rate 72 ML/MIN; Glucose 105 MG/DL (74-106); Potassium 4.3 MMOL/L (3.5-5.1); Sodium 136 MMOL/L (136-145); Total Protein 7.5 G/DL (6.4-8.2)
[2022-02-02] MEDS ORDERED: GLUCAGON 1 MG VIAL IM PRN (04:22)
[2022-02-02] MEDS ORDERED: ACETAMINOPHEN 325 MG TABLET PO PRN (04:22)
[2022-02-02] MEDS ORDERED: hydrALAZINE 20 MG/1 ML VIAL IV PRN (04:22)
[2022-02-02] MEDS ORDERED: ONDANSETRON 4 MG/2 ML VIAL IV PRN (04:22)
[2022-02-02] MEDS ORDERED: SODIUM CHLORIDE 0.9% 1,000 ML IV SCH (04:30)
[2022-02-02] MEDS ORDERED: DEXTROSE 10% 250 ML BAG IV PRN (04:37)
[2022-02-02] MEDS ORDERED: ALBUTEROL 2.5 MG/3 ML NEB RESP TX ONE (07:36)
[2022-02-02] MEDS ORDERED: allopurinoL 100 MG TABLET PO SCH (09:00)
[2022-02-02] MEDS ORDERED: PANTOPRAZOLE 40 MG TABLET PO SCH (09:00)
[2022-02-02] MEDS ORDERED: MULTIVITAMIN (CENTRUM) TABLET PO SCH (09:00)
[2022-02-02] MEDS ORDERED: MONTELUKAST 10 MG TABLET PO SCH (09:00)
[2022-02-02] MEDS ORDERED: PSEUDOEPHEDRINE PO SCH (09:00)
[2022-02-02] MEDS ORDERED: TAMSULOSIN 0.4 MG CAPSULE PO SCH (09:00)
[2022-02-02] MEDS ORDERED: ALBUTEROL 2.5 MG/3 ML NEB RESP TX SCH (09:00)
[2022-02-02] MEDS ORDERED: atenoloL 50 MG TABLET PO SCH (09:00)
[2022-02-02] MEDS ORDERED: DOCUSATE SODIUM 100 MG CAPSULE PO SCH (09:00)
[2022-02-02] MEDS ORDERED: FEXOFENADINE PO SCH (09:00)
[2022-02-02] MEDS ORDERED: [UNRECOGNIZED DRUG - OTHER] PO SCH (09:00)
[2022-02-02 17:13] VITALS: BP 141/88
[2022-02-03] MEDS ORDERED: cefTRIAXone 1,000 MG in SODIUM CHLORIDE 0.9% 100 ML IV SCH (01:00)
[2022-02-03] MEDS ORDERED: FEXOFENADINE 60 MG TABLET PO SCH (09:00)
== END 2022-02-02 17:13 | disposition home or self-care (01) ==
LOC: N.ED 22:01 → N.EDINP 22:01
PROVIDERS: ADMIT Internal Medicine; ATTEND Internal Medicine